=== PATIENT | male | born 1960 | race Caucasian/White ===

== ENCOUNTER 2020-01-13 18:16 | Inpatient (IN) | payer SELFPAY ==
[2020-01-13] MEDS ORDERED: SODIUM CHLORIDE 0.9% (FLUSH) 10 ML SYG ONE (18:29)
[2020-01-13] MEDS ORDERED: SODIUM CHLORIDE 0.9% (FLUSH) 10 ML SYG IV PRN ×2 (18:38→21:31)
[2020-01-13] MEDS ORDERED: ONDANSETRON INJ 4 MG/2 ML VIAL IV ONE (18:52)
[2020-01-13] MEDS ORDERED: HYDROmorphone HCL INJ 2 MG/ML VIAL IV ONE (18:52)
--- NOTE | 2020-01-13 19:16 | ED.PDOC ---
History of Present Illness - General Chief Complaint: Neuro Symptoms/Deficits Stated Complaint: AMS Time Seen by Provider: 01/13/20 18:36 Source: patient, RN notes reviewed, Vital Signs reviewed, family - - History of Present Illness Initial Comments: Patient is a 60-year-old white male who is brought in by family secondary to altered mental status and confusion. Patient has known liver disease (cirrhosis secondary to alcoholism) and was about to enter hospice when they moved to [facility]. Patient just lost his insurance is been unable to set up hospice yet. Dr. Muhammad sent them to the emergency department for further laboratory work and pain medication. Patient is confused. He will intermittently answer a question or 2 and 1 word answers. Patient is complaining of body pain. He is unable to describe the pain, its intensity or definitive locations. Patient is altered. Therefore it is difficult to obtain an HPI or review of systems. Timing/Duration: 24 hours Severity: severe Improving Factors: nothing Worsening Factors: nothing Associated Symptoms: malaise, nausea/vomiting - Nausea only, weakness - Generalized Allergies/Adverse Reactions: Allergies NO KNOWN ALLERGY Allergy (Verified 01/13/20 18:43) Review of Systems - Review of Systems Review of Systems: 01/13/20 19:16 Patient complains of body pain. says he has become acutely more confused over the last 24 hours. Unable to Obtain Due To: condition, clinical condition - Confusion Past Medical History (General) - Patient Medical History Hx Asthma: No Hx of COPD: No Hx Cardiac Disorders: No Hx Congestive Heart Failure: No Hx Hypertension: Yes Hx Diabetes: No Hx Gastroesophageal Reflux: Yes Hx Hepatitis C: Yes Surgical History: other - Vaccination History Hx Influenza Vaccination: Yes Hx Pneumococcal Vaccination: Yes - Social History Hx Tobacco Use: Yes Hx Alcohol Use: Yes - quit 3 weeks ago Hx Substance Use: No Hx Substance Use Treatment: No Family Medical History - Family History Mother Hx Family;Other: COPD Physical Exam - Physical Exam General Appearance: Agitated, Anxious, Obvious distress, Unkempt, Well Developed Eye Exam: bilateral other - Patient with jaundice sclera. Ears, Nose, Throat: hearing grossly normal, normal pharynx Neck: non-tender, full range of motion, supple Respiratory: chest non-tender, lungs clear, normal breath sounds, no respiratory distress, no accessory muscle use Cardiovascular/Chest: normal peripheral pulses, regular rate, rhythm, no gallop, no murmur Peripheral Pulses: radial,right: 2+, radial,left: 2+ Gastrointestinal/Abdominal: normal bowel sounds, soft, tenderness - Mild lower abdominal tenderness. No peritoneal signs., hepatomegaly Back Exam: normal inspection, no CVA tenderness, no vertebral tenderness Extremity: normal range of motion, non-tender, other - Patient is jaundiced. Neurologic: alert, other - Oriented to self only Skin Exam: jaundice Progress - Progress Progress: Differential diagnosis: Elevated pneumonia, hyperbilirubinemia, liver failure, sepsis among others. 01/13/20 20:13 Patient with severe hyperbilirubinemia and early stages of liver failure. Patient has been made DNR by his . Plan on admission to the hospital for further evaluation of his liver failure but more importantly to initiate hospice care. I discussed this with the and she voices understanding and agreement with this plan of care. I discussed this with Andie Crum NP, the hospitalist and she agrees for admission. Juno Cope M.D. #[id number] - Results/Orders Results/Orders: 01/13/20 18:38 IV Care:Saline Lock per Protoc QSHIFT Sodium Chloride 0.9% (Flush) [Saline Flush Syringe] 10 ml IV PRN PRN Laboratory Results - last 24 hr 01/13/20 01/13/20 01/13/20 18:45 18:45 18:45 WBC 9.3 RBC 2.77 L Hgb 10.2 L Hct 28.8 L MCV 104.0 H MCH 36.7 H MCHC 35.3 RDW 22.5 H Plt Count 62 L MPV 10.4 Absolute Neuts (auto) 7.20 H Absolute Lymphs (auto) 1.00 Absolute Monos (auto) 0.90 H Absolute Eos (auto) 0.10 Absolute Basos (auto) 0.00 Neutrophils % 77.4 Lymphocytes % 10.6 L Monocytes % 9.9 H Eosinophils % 1.6 Basophils % 0.5 Normal RBC Morphology Stain quality accept PT INR PTT (SP) Sodium 124 L Potassium 3.3 L Chloride 96 L Carbon Dioxide 19 L Anion Gap 12.3 BUN 19 H Creatinine 1.11 BUN/Creatinine Ratio 17.1 Random Glucose 123 H Serum Osmolality 253.3 L* Calcium 8.4 Total Bilirubin 28.6 H* Direct Bilirubin 10.3 H Indirect Bilirubin 18.3 H AST 117 H ALT 66 H Alkaline Phosphatase 236 H Ammonia Serum Total Protein 6.5 Albumin 2.0 L Lipase 77 H Urine Color Urine Appearance Urine pH Ur Specific [place] Urine Protein Urine Glucose (UA) Urine Ketones Urine Blood Urine Nitrite Urine Bilirubin Urine Urobilinogen Ur Leukocyte Esterase Urine RBC Urine WBC Ur Epithelial Cells Amorphous Sediment Urine Bacteria Urine Mucus 01/13/20 01/13/20 01/13/20 18:45 18:45 18:45 WBC RBC Hgb Hct MCV MCH MCHC RDW Plt Count MPV Absolute Neuts (auto) Absolute Lymphs (auto) Absolute Monos (auto) Absolute Eos (auto) Absolute Basos (auto) Neutrophils % Lymphocytes % Monocytes % Eosinophils % Basophils % Normal RBC Morphology PT 15.9 H INR 1.61 H PTT (SP) 39.4 H Sodium Potassium Chloride Carbon Dioxide Anion Gap BUN Creatinine BUN/Creatinine Ratio Random Glucose Serum Osmolality Calcium Total Bilirubin Direct Bilirubin Indirect Bilirubin AST ALT Alkaline Phosphatase Ammonia 30 Serum Total Protein Albumin Lipase Urine Color Urine Appearance Urine pH Ur Specific [place] Urine Protein Urine Glucose (UA) Urine Ketones Urine Blood Urine Nitrite Urine Bilirubin Urine Urobilinogen Ur Leukocyte Esterase Urine RBC Urine WBC Ur Epithelial Cells Amorphous Sediment Urine Bacteria Urine Mucus 01/13/20 19:12 WBC RBC Hgb Hct MCV MCH MCHC RDW Plt Count MPV Absolute Neuts (auto) Absolute Lymphs (auto) Absolute Monos (auto) Absolute Eos (auto) Absolute Basos (auto) Neutrophils % Lymphocytes % Monocytes % Eosinophils % Basophils % Normal RBC Morphology PT INR PTT (SP) Sodium Potassium Chloride Carbon Dioxide Anion Gap BUN Creatinine BUN/Creatinine Ratio Random Glucose Serum Osmolality Calcium Total Bilirubin Direct Bilirubin Indirect Bilirubin AST ALT Alkaline Phosphatase Ammonia Serum Total Protein Albumin Lipase Urine Color Dk yellow Urine Appearance Sl cloudy Urine pH 7.5 Ur Specific [place] 1.015 Urine Protein Negative Urine Glucose (UA) Negative Urine Ketones Negative Urine Blood Negative Urine Nitrite Negative Urine Bilirubin Large Urine Urobilinogen 0.2 Ur Leukocyte Esterase Negative Urine RBC 0-1 Urine WBC 1-3 Ur Epithelial Cells 1-3 Amorphous Sediment 1+ Urine Bacteria Rare Urine Mucus Trace Vital Signs 01/13/20 01/13/20 01/13/20 18:20 19:00 19:16 Temperature 97.3 F L 97.8 F Pulse Rate [ 97 H 92 H 88 pulse ox] Respiratory 20 20 20 Rate Blood Pressure 159/84 183/109 183/109 [Left Arm] O2 Sat by Pulse 98 95 95 Oximetry 01/13/20 20:01 Temperature Pulse Rate [ 84 pulse ox] Respiratory 18 Rate Blood Pressure 157/87 [Left Arm] O2 Sat by Pulse 97 Oximetry Departure - Departure Clinical Impression: Hyperbilirubinemia, Admission for hospice care Altered mental status Qualifiers: Altered mental status type: disorientation Qualified Code(s): R41.0 - Disorientation, unspecified Time of Disposition: 20:21 Disposition: Admit Patient Condition: Poor Departure Forms: ED Discharge - Pt. Copy, Patient Portal Self Enrollment Referrals: MARTHA MUHAMMAD [Primary Care Provider] - 1-2 Weeks Decision To Admit - Decistion To Admit Decision to Admit Reason: Admit from ER Decision to Admit Date: 01/13/20 Decision to Admit Time: 19:45
[2020-01-13] MEDS ORDERED: ONDANSETRON INJ 4 MG/2 ML VIAL IV PRN (21:31)
[2020-01-13] MEDS ORDERED: KCL 20MEQ/D5NS 1,000 ML IVS PRN (21:38)
[2020-01-13] MEDS ORDERED: HYDROmorphone HCL INJ 2 MG/ML VIAL IV PRN (21:39)
[2020-01-13] MEDS ORDERED: IV SET AND CAP CHANGE INJ INJ SCH (22:00)
[2020-01-14] MEDS: PANTOPRAZOLE SODIUM IV 40 MG VIAL IV SCH (06:12)
[2020-01-14] MEDS: SODIUM CHLORIDE 0.9% (FLUSH) 10 ML SYG IV SCH ×2 (08:40→21:11)
--- NOTE | 2020-01-14 09:40 | HP ---
SUPERVISING PHYSICIAN: Jeyson Jovel MD CHIEF COMPLAINT: Altered mental status. HISTORY OF PRESENT ILLNESS: This is a 60-year-old male patient who was brought to the Emergency Room due to his altered mental status and increased confusion. The patient has known liver disease with cirrhosis. He was working in [place] and he lost his job. He recently moved to the [place] area to be close to family. He has had intermittent confusion in the past, but it has worsened in the last several days. He was actually in a hospital in [place] within the last week or so. In the Emergency Room, he was fairly lethargic with minimal interaction. He would wake up for a short amount of time and answer some simple questions and then go right back to sleep. It was difficult to obtain a full review of systems from the patient and his contributed to most of his medical history. In the Emergency Room, his initial vital signs were temperature 97.3, heart rate 97, blood pressure 159/84, respiratory rate 20, O2 saturation 98% on room air. His lab studies showed WBC 9,300, hemoglobin 10.2, hematocrit 28.8, platelet count 62. There was no left shift on his differential. PT 15.9, INR 1.61, PTT 39.4. Chemistries showed sodium 124, potassium 3.3, chloride 96, carbon dioxide 19, BUN 19, creatinine 1.11, glucose 123, serum osmolality 253, total bilirubin 28.6, direct bilirubin 10.3, indirect bilirubin 8.3, AST 117, ALT 66, alkaline phosphatase 236, ammonia 30, albumin 2, lipase 77. Urinalysis was unremarkable. The patient is a DNR. I was called for hospital admission. PAST MEDICAL HISTORY: 1. Liver failure with cirrhosis. 2. Hepatitis C. 3. Gastroesophageal reflux disease. 4. Hypertension. 5. Alcohol abuse. PAST SURGICAL HISTORY: 1. Transjugular intrahepatic portosystemic shunt. 2. Pelvic surgery due to a pelvic fracture. 3. Hernia repair. 4. Multiple paracentesis. OUTPATIENT MEDICATIONS: Per the EMR and awaiting verification. ALLERGIES: NO KNOWN DRUG ALLERGIES. SOCIAL HISTORY: He recently lost his job and moved to [place] from [place]. He is . He has smoked a pipe for many years but has recently cut down to 1- 2 times daily. He has been a heavy drinker for many years. He supposedly quit drinking alcohol about 3 weeks ago. There is no history of illicit drug use. REVIEW OF SYSTEMS: Unable to obtain due to the patient's mental status. PHYSICAL EXAMINATION: VITAL SIGNS: Temperature 97, heart rate 81, blood pressure 146/77, respiratory rate 16, O2 saturation 92% on room air. GENERAL: This is a lethargic, 60-year-old patient who is somewhat disheveled. HEENT: The patient has jaundiced sclerae. Otherwise, normocephalic, atraumatic. Pupils are equal and reactive. NECK: Supple without mass. RESPIRATORY: Essentially clear to auscultation bilaterally. CHEST: There is equal rise and fall of the chest with inspiration and expiration. CARDIOVASCULAR: Regular rate and rhythm. GASTROINTESTINAL: Abdomen is soft, nondistended. There is some tenderness diffusely, but it is mild. SKIN: Jaundiced, but warm and dry. NEUROLOGIC: He is lethargic and sleepy. He does open his eyes to command, but only answers a few simple questions. He is oriented to self only. LABORATORY: Labs and films are as per history of present illness. IMPRESSION: 1. Liver failure with hepatic encephalopathy. 2. Altered mental status secondary to #1. 3. Hyperbilirubinemia. 4. Thrombocytopenia. 5. Electrolyte imbalance. 6. Hepatitis C. 7. ETOH abuse. 8. Hypertension. 9. Gastroesophageal reflux disease. PLAN: The patient has been admitted to the hospital. He has been made a Do Not Resuscitate by the family. We will gently hydrate him overnight and I will restart his medicines as soon as they are verified, although at this time I am not sure he can take them, so we will reevaluate that at some point. Neuro checks will be done. I will repeat his lab in the morning. For now, he has a Ulloa catheter in and we will leave that and reevaluate discontinuance at some point. He has a PPI for ulcer prophylaxis. He does not have Lovenox at this time due to his liver failure although I will place SCDs for DVT prophylaxis. I have consulted Building Guard Deputy Sheriff as due to his poor prognosis, it is recommended he get a hospice consult. We will continue to monitor the patient closely and follow as needed. [facility][id number] [facility]
[2020-01-14] MEDS: LACTULOSE SYRUP 20 GM/30 ML UD PO SCH ×2 (10:34→18:02)
--- NOTE | 2020-01-14 13:10 | PN ---
SUPERVISING PHYSICIAN: Jeyson Jovel MD DATE: 01/14/20 SUBJECTIVE: The patient is lying in bed asleep. He awakens easily. He is less lethargic than last night, but still answers only simple questioning. His is at the bedside. She said he has rested well overnight and he is much less agitated than yesterday. OBJECTIVE: VITAL SIGNS: Temperature 98.5. Heart rate 98. Blood pressure 129/76. Respiratory rate 18. O2 saturation 98% on room air. RESPIRATORY: Essentially clear to auscultation bilaterally. CARDIAC: Regular rate and rhythm. GASTROINTESTINAL: Abdomen is soft. The patient grimaces with palpation. Bowel sounds are positive. SKIN: He is jaundiced, but it is warm and dry. NEUROLOGIC: He is lethargic. He opens his eyes to command. He is oriented to person only. LABORATORY: WBCs 8,100, hemoglobin 9.7, hematocrit 27.8. Platelet count 48. Sodium 129, potassium 3.3, chloride 102, BUN 18, creatinine 1, serum osmolality has improved to 261.1 with total bilirubin 24.3, calcium 8. AST 98, ALT 53, alkaline phosphatase 194. Ammonia has increased to 44. All other labs and films have been reviewed via the EMR. ASSESSMENT: 1. Liver failure with hepatic encephalopathy. 2. Altered mental status secondary to #1. 3. Hyperbilirubinemia. 4. Thrombocytopenia. 5. Electrolyte imbalance. 6. Hepatitis C. 7. ETOH abuse. 8. Hypertension. 9. Gastroesophageal reflux disease. PLAN: We will continue present supportive care. We discussed discharge planning including hospice and Manager Support Services and Utilization Review is working on that at this time. I have started his lactulose back up although his home medications have not been completely verified. We will restart the ones that are necessary after those are verified. I will repeat labs for in the morning. Due to the patient's mental status, we will continue Ulloa catheter for right now. We will continue to monitor the patient closely and follow as needed. [facility][id number] [facility]
[2020-01-15] MEDS: LACTULOSE SYRUP 20 GM/30 ML UD PO SCH ×2 (02:12→10:08)
[2020-01-15 02:15] VITALS: TEMP 98.6
[2020-01-15 05:17] VITALS: O2SAT 97
[2020-01-15] MEDS: PANTOPRAZOLE SODIUM IV 40 MG VIAL IV SCH (06:07)
[2020-01-15] MEDS ORDERED: FUROSEMIDE 40 MG TAB PO SCH ×2 (09:00)
[2020-01-15 09:24] VITALS: BP 125/69
[2020-01-15] MEDS: SODIUM CHLORIDE 0.9% (FLUSH) 10 ML SYG IV SCH (09:27)
--- NOTE | 2020-01-15 14:58 | DS ---
SUPERVISING PHYSICIAN: Jeyson Jovel MD DISCHARGED TO HOSPICE: 01/15/20 ADMISSION DIAGNOSES: 1. Liver failure with hepatic encephalopathy. 2. Altered mental status secondary to #1. 3. Hyperbilirubinemia. 4. Thrombocytopenia. 5. Electrolyte imbalance. 6. Hepatitis C. 7. ETOH abuse. 8. Hypertension. 9. Gastroesophageal reflux disease. DISCHARGE DIAGNOSES: 1. Liver failure with hepatic encephalopathy. 2. Altered mental status secondary to #1. 3. Hyperbilirubinemia. 4. Thrombocytopenia. 5. Electrolyte imbalance. 6. Hepatitis C. 7. ETOH abuse. 8. Hypertension. 9. Gastroesophageal reflux disease. REASON FOR HOSPITALIZATION: This is a 60-year-old male patient who was brought to the Emergency Room due to his altered mental status and increased confusion. The patient has known liver disease with cirrhosis. He was working in [place] and he lost his job. He recently moved to the [facility] to be close to family. He has had intermittent confusion in the past, but it has worsened in the last several days. He was actually in a hospital in [place] within the last week or so. In the Emergency Room, he was fairly lethargic with minimal interaction. He would wake up for a short amount of time and answer some simple questions and then go right back to sleep. It was difficult to obtain a full review of systems from the patient and his contributed to most of his medical history. In the Emergency Room, his initial vital signs were temperature 97.3, heart rate 97, blood pressure 159/84, respiratory rate 20, O2 saturation 98% on room air. His lab studies showed WBC 9,300, hemoglobin 10.2, hematocrit 28.8, platelet count 62. There was no left shift on his differential. PT 15.9, INR 1.61, PTT 39.4. Chemistries showed sodium 124, potassium 3.3, chloride 96, carbon dioxide 19, BUN 19, creatinine 1.11, glucose 123, serum osmolality 253, total bilirubin 28.6, direct bilirubin 10.3, indirect bilirubin 8.3, AST 117, ALT 66, alkaline phosphatase 236, ammonia 30, albumin 2, lipase 77. Urinalysis was unremarkable. The patient is a DNR. I was called for hospital admission. LABORATORY: Discharge hemogram 9.8, hematocrit 27.5, platelet count down to 48,000. Coagulation studies showed elevated PT at 15.9 with elevated PTT at 39.4. Chemistries on discharge showed a sodium of 131, potassium 3.4, BUN 14, creatinine 0.94, bilirubin 24.9 with elevated AST at 122, ALT normal at 57, alkaline phosphatase of 184 which all are down from admission. Ammonia level 52 on date of discharge. He did have an elevated lipase at 77. Urinalysis was essentially within normal limits. MICROBIOLOGY: No specimens were collected. RADIOLOGY: No additional radiographic studies were taken while in the hospital. HOSPITAL COURSE: Mr. Mueller was admitted on 01/13/20 with altered mental status secondary to liver failure and cirrhosis. His hepatic encephalopathy was treated with his normal regular medications. He was made a DNR shortly after admission by his family. He was started on IV fluids and all his medications resumed. He was showing to be fairly stable but given his prognosis, a consultation with hospice was completed and he was accepted into the care of [facility]. PLAN: Mr. Mueller was discharged to [facility] with orders provided by [facility]. No medications were prescribed at discharge. Diet was normal diet as previous to hospitalization. He is to followup with his primary care physician in the following weeks. Condition on discharge was stable but poor with a poor prognosis. DISPOSITION: The patient is discharged to [facility]. [id number]
== END 2020-01-15 11:20 | disposition hospice, home (50) | DRG 443 ==
LOC: ER 18:16 → MS 20:30 → OBSVTOIN 20:30
PROVIDERS: ADMIT Nurse Practitioner Acute Care; ATTEND Nurse Practitioner Family
DX: K72.90 Hepatic failure, unspecified without coma (principal); K70.30 Alcoholic cirrhosis of liver without ascites; D69.6 Thrombocytopenia, unspecified; F10.10 Alcohol abuse, uncomplicated; I10 Essential (primary) hypertension; K21.9 Gastro-esophageal reflux disease without esophagitis; F17.290 Nicotine dependence, other tobacco product, uncomplicated; Z66 Do not resuscitate